=== PATIENT | female | born 1950 | race Caucasian/White ===

== ENCOUNTER 2021-04-01 22:12 | Emergency (ER) | payer MEDICARE, OTHER ==
[2021-04-01 22:43] LABS: HEMOGLOBIN 16.4 gm/dl (12.3-15.3); RED BLOOD COUNT 4.76 M/UL (4.00-5.10)
[2021-04-01 22:58] LABS: BUN/CREATININE RATIO 12 (0-10)
== END 2021-04-02 01:54 | disposition admitted as inpatient to this hospital (09) ==
LOC: ER1 22:12
PROVIDERS: Emergency Medicine
DX: K44.9 Diaphragmatic hernia without obstruction or gangrene (principal); K56.2 Volvulus; F17.210 Nicotine dependence, cigarettes, uncomplicated; Z20.822 Contact with and (suspected) exposure to COVID-19
CPT/HCPCS: 71045; 71260; 80053; 82550; 82553; 83690; 83874; 84484; 85025; 93005; 96374; 96375; 96376; 99285; C9113; J2270; J2405; Q9967; U0002